=== PATIENT | female | born 2000 | race Caucasian/White ===

== ENCOUNTER 2024-12-29 17:16 | Emergency (ER) | payer OTHER ==
[2024-12-29] MEDS: Diphtheria,Pertussis(Acell),Tetanus Vaccine 0.5 ML Syringe IM ONE (18:33)
[2024-12-29] MEDS: Doxycycline Monohydrate 100 MG Cap PO ONE (20:40)
== END 2024-12-29 20:33 | disposition home or self-care (01) ==
LOC: JD.ED 17:16
DX: S61.011A Laceration without foreign body of right thumb without damage to nail, initial encounter (principal); Z86.16 Personal history of COVID-19; Z79.899 Other long term (current) drug therapy; Z23 Encounter for immunization; J01.10 Acute frontal sinusitis, unspecified; W26.8XXA Contact with other sharp object(s), not elsewhere classified, initial encounter; Y93.89 Activity, other specified
CPT/HCPCS: 12001; 90471; 90715; 99282; 99283-25; A9270-GY